=== PATIENT | female | born 1950 | race Caucasian/White ===

== ENCOUNTER 2022-05-08 16:21 | Emergency (ER) | payer MEDICARE ==
[2022-05-08 16:39] VITALS: RESP 18; TEMP 98
[2022-05-08 16:41] VITALS: BP 143/93
[2022-05-08] MEDS ORDERED: SODIUM CHLORIDE 0.9% 1,000 ML IV STA (20:07)
--- NOTE | 2022-05-08 20:38 | ED ---
General Adult HPI - General Chief complaint: Back Pain/Injury Stated complaint: Dizziness Time Seen by Provider: 05/08/22 19:56 Source: patient, RN notes reviewed Mode of arrival: wheelchair - History of Present Illness Initial comments: This is a pleasant 71-year-old female who is on vacation from [facility]. Patient presents to the emergency department today complaining of a headache for the past 30 days as well as neck pain and back pain. Patient states sleeping last night was uncomfortable due to the pain in her left mid to lower back. Patient denying any fever or chills. Denies any shortness breath or chest pain. Patient states she had a virtual with her neurologist was sent here for evaluation. Patient states she recently had shingles in her right foot and currently is on acyclovir. Patient states that this is the third time she since shingles. Apparently every time she precedes the shingles with a headache. Headache currently 7 out of 10 in intensity. Patient denies any focal weakness. No numbness or tingling. Does have some lightheadedness. No vertiginous symptoms. Is complaining of headache, neck pain, back pain which assessment by movement. POSITIVE cough, No headache, no fever or chills, no changes in vision or hearing, no sore throat or difficulty with speech, no neck pain, no chest pain or shortness of breath, no abdominal pain, no nausea or vomiting, no changes in urination or bowel movements, no numbness or tingling, no extremity pain, no skin rashes or lesions. Past medical, surgical, social, and family history reviewed. - Related Data Allergies Allergy/AdvReac Type Severity Reaction Status Date / Time amiodarone Allergy Unknown Verified 05/08/22 21:00 carbidopa Allergy Unknown Verified 05/08/22 21:00 cyclobenzaprine Allergy Unknown Verified 05/08/22 21:00 [From Flexeril] hydromorphone [From Dilaudid] Allergy Unknown Verified 05/08/22 21:00 lisinopril Allergy Unknown Verified 05/08/22 21:00 nifedipine Allergy Unknown Verified 05/08/22 21:00 adhesive tape AdvReac Unknown Verified 05/08/22 21:00 NSAIDS (Non-Steroidal AdvReac Unknown Verified 05/08/22 21:00 Anti-Inflamma Review of Systems ROS Statement: Those systems with pertinent positive or pertinent negative responses have been documented in the HPI. ROS Other: All systems not noted in ROS Statement are negative. Past Medical History Past Medical History: Asthma, Hypertension, Thyroid Disorder Additional Past Medical History / Comment(s): chronic back pain, dysautonomia, Thomas Danlos syndrome History of Any Multi-Drug Resistant Organisms: None Reported Past Surgical History: Back Surgery, Joint Replacement, Orthopedic Surgery Additional Past Surgical History / Comment(s): cervical fusion Past Psychological History: No Psychological Hx Reported Smoking Status: Never smoker Past Alcohol Use History: None Reported Past Drug Use History: None Reported General Exam - General Exam Comments Initial Comments: Patient does not appear to be ill or toxic. Resting comfortably when I enter the room. Patient working on a computer. Cranial nerves II through XII are intact. Alert and oriented 4. Vital signs stable, patient afebrile. Capillary refill less than 2 seconds. No mottling. General appearance: alert, in no apparent distress Head exam: Present: atraumatic, normocephalic, normal inspection Eye exam: Present: normal appearance, PERRL, EOMI. Absent: scleral icterus, conjunctival injection, periorbital swelling ENT exam: Present: normal exam, normal oropharynx, mucous membranes moist, TM's normal bilaterally, normal external ear exam. Absent: mucous membranes dry Neck exam: Present: normal inspection, full ROM, other (Negative Brudzinski's a nd Kernig's). Absent: tenderness, meningismus, lymphadenopathy Respiratory exam: Present: normal lung sounds bilaterally. Absent: respiratory distress, wheezes, rales, rhonchi, stridor, chest wall tenderness, accessory muscle use, decreased breath sounds, prolonged expiratory Cardiovascular Exam: Present: regular rate, normal rhythm, normal heart sounds. Absent: systolic murmur, diastolic murmur, rubs, gallop, clicks GI/Abdominal exam: Present: soft, normal bowel sounds. Absent: distended, tenderness, guarding, rebound, rigid Extremities exam: Present: normal inspection, full ROM, normal capillary refill. Absent: tenderness, pedal edema, joint swelling, calf tenderness Back exam: Present: normal inspection Neurological exam: Present: alert, oriented X3, CN II-XII intact, normal gait, reflexes normal. Absent: motor sensory deficit Psychiatric exam: Present: normal affect, normal mood. Absent: depressed, ag itated, anxious, flat affect, manic Skin exam: Present: warm, dry, intact, normal color, other. Absent: rash, cyanosis, erythema, urticaria, vesicles, petechiae, pallor, mottled, abrasion Course Vital Signs 05/08/22 05/08/22 16:32 16:41 Temperature 98.0 F Pulse Rate 89 Respiratory 18 Rate Blood Pressure 143/93 O2 Sat by Pulse 97 Oximetry - Reevaluation(s) Reevaluation #1: 05/08/22 22:32 Medical record is reviewed Symptoms somewhat improved after initial pain medication. Patient is informed of results and questions answered Patient in no distress Reevaluation #2: 05/09/22 00:16 Medical record is reviewed Symptoms are improved here in the emergency department Patient is informed of results and questions answered Patient in no distress EKG Findings - EKG Comments: EKG Findings:: EKG done at 2234 and interpreted by me reveals sinus rhythm rate is 68, normal axis, normal intervals, no acute ST or T-wave changes. Normal QRS morphology. Review by the ED attending physician. No comparison study. Medical Decision Making - Medical Decision Making Patient symptomology most consistent with musculoskeletal etiology. However, infectious etiology such as viral syndrome is within the differential. I do not believe this consistent with any meningitis as the patient has had symptoms for a month. Current headaches have not 10 intensity. This headache is longer than the patient is used to. Patient does have a history of headaches. Going to obtain a CT of the brain, only due to the length of symptomology. Patient has no focal neurologic deficits. Discussed all findings with the patient. Discussed treatment plan. We did discuss other investigations to include lumbar puncture. After discussion. Patient is refusing this modality. I think this is relatively low risk as the patient has had symptomology for 1 month. Patient's pain is near the left flank. We did decide order a noncontrast CT to rule out kidney stone. Patient was reevaluated and is improved. Patient has reproducible low back pain which is exacerbated by movement and palpation. No evidence of cauda equina syndrome. No problems with bowel movements urination. Patient neurologically intact. Patient does have old compression fractures of T12 and L3 which showed a new about. Patient has tramadol at home. Patient states she uses Cheri at with Tylenol. Patient also has a cough with some nasal congestion. Suspect viral bronchitis, possible adenovirus or rhinovirus. Patient released in stable condition. The case was discussed in detail with ED attending physician. Presentation, findings, treatment plan discussed in detail. Patient was told to return to the ER for any signs or symptoms worsen. Told to return immediately if any other problems arise. All questions answered. Treatment plan discussed. Patient in agreement Every effort has been made to ensure accuracy of this dictation. However, due to the limitations of electronic medical records and dictation devices, errors in charting still occur. Walking Dragline Operator Dr. Vieira - Lab Data Result diagrams: 05/08/22 20:35 05/08/22 21:24 Lab Results 05/08/22 05/08/22 05/08/22 Range/Units 20:35 20:35 20:35 WBC 11.3 H (3.8-10.6) k/uL RBC 4.52 (3.80-5.40) m/uL Hgb 14.4 (11.4-16.0) gm/dL Hct 42.7 (34.0-46.0) % MCV 94.4 (80.0-100.0) fL MCH 31.8 (25.0-35.0) pg MCHC 33.7 (31.0-37.0) g/dL RDW 13.7 (11.5-15.5) % Plt Count 288 (150-450) k/uL MPV 8.7 Neutrophils % 73 % Lymphocytes % 18 % Monocytes % 5 % Eosinophils % 1 % Basophils % 0 % Neutrophils # 8.3 H (1.3-7.7) k/uL Lymphocytes # 2.1 (1.0-4.8) k/uL Monocytes # 0.6 (0-1.0) k/uL Eosinophils # 0.1 (0-0.7) k/uL Basophils # 0.0 (0-0.2) k/uL ESR 17 (0-20) mm/hr Sodium (137-145) mmol/L Potassium (3.5-5.1) mmol/L Chloride (98-107) mmol/L Carbon Dioxide (22-30) mmol/L Anion Gap mmol/L BUN (7-17) mg/dL Creatinine (0.52-1.04) mg/dL Est GFR (CKD-EPI)AfAm (>60 ml/min/1.73 sqM) Est GFR (CKD-EPI)NonAf (>60 ml/min/1.73 sqM) Glucose (74-99) mg/dL Plasma Lactic Acid Jerardo (0.7-2.0) mmol/L Calcium (8.4-10.2) mg/dL Magnesium (1.6-2.3) mg/dL Total Bilirubin (0.2-1.3) mg/dL AST (14-36) U/L ALT (4-34) U/L Alkaline Phosphatase (38-126) U/L Troponin I <0.012 (0.000-0.034) ng/mL Total Protein (6.3-8.2) g/dL Albumin (3.5-5.0) g/dL Urine Color Light Yellow Urine Appearance Clear (Clear) Urine pH 6.0 (5.0-8.0) Ur Specific Graford 1.003 (1.001-1.035) Urine Protein Negative (Negative) Urine Glucose (UA) Negative (Negative) Urine Ketones Negative (Negative) Urine Blood Negative (Negative) Urine Nitrite Negative (Negative) Urine Bilirubin Negative (Negative) Urine Urobilinogen <2.0 (<2.0) mg/dL Ur Leukocyte Esterase Trace H (Negative) Urine RBC <1 (0-5) /hpf Urine WBC 3 (0-5) /hpf Coronavirus (PCR) (Not Detectd) Influenza Type A RNA (Not Detectd) Influenza Type B (PCR) (Not Detectd) 05/08/22 05/08/22 05/08/22 Range/Units 21:07 21:07 21:24 WBC (3.8-10.6) k/uL RBC (3.80-5.40) m/uL Hgb (11.4-16.0) gm/dL Hct (34.0-46.0) % MCV (80.0-100.0) fL MCH (25.0-35.0) pg MCHC (31.0-37.0) g/dL RDW (11.5-15.5) % Plt Count (150-450) k/uL MPV Neutrophils % % Lymphocytes % % Monocytes % % Eosinophils % % Basophils % % Neutrophils # (1.3-7.7) k/uL Lymphocytes # (1.0-4.8) k/uL Monocytes # (0-1.0) k/uL Eosinophils # (0-0.7) k/uL Basophils # (0-0.2) k/uL ESR (0-20) mm/hr Sodium 138 (137-145) mmol/L Potassium 4.5 (3.5-5.1) mmol/L Chloride 105 (98-107) mmol/L Carbon Dioxide 25 (22-30) mmol/L Anion Gap 8 mmol/L BUN 11 (7-17) mg/dL Creatinine 0.61 (0.52-1.04) mg/dL Est GFR (CKD-EPI)AfAm >90 (>60 ml/min/1.73 sqM) Est GFR (CKD-EPI)NonAf >90 (>60 ml/min/1.73 sqM) Glucose 93 (74-99) mg/dL Plasma Lactic Acid Jerardo (0.7-2.0) mmol/L Calcium 9.5 (8.4-10.2) mg/dL Magnesium 2.3 (1.6-2.3) mg/dL Total Bilirubin 0.4 (0.2-1.3) mg/dL AST 23 (14-36) U/L ALT 15 (4-34) U/L Alkaline Phosphatase 127 H (38-126) U/L Troponin I (0.000-0.034) ng/mL Total Protein 7.1 (6.3-8.2) g/dL Albumin 4.4 (3.5-5.0) g/dL Urine Color Urine Appearance (Clear) Urine pH (5.0-8.0) Ur Specific Graford (1.001-1.035) Urine Protein (Negative) Urine Glucose (UA) (Negative) Urine Ketones (Negative) Urine Blood (Negative) Urine Nitrite (Negative) Urine Bilirubin (Negative) Urine Urobilinogen (<2.0) mg/dL Ur Leukocyte Esterase (Negative) Urine RBC (0-5) /hpf Urine WBC (0-5) /hpf Coronavirus (PCR) Not Detected (Not Detectd) Influenza Type A RNA Not Detected (Not Detectd) Influenza Type B (PCR) Not Detected (Not Detectd) 05/08/22 Range/Units 21:24 WBC (3.8-10.6) k/uL RBC (3.80-5.40) m/uL Hgb (11.4-16.0) gm/dL Hct (34.0-46.0) % MCV (80.0-100.0) fL MCH (25.0-35.0) pg MCHC (31.0-37.0) g/dL RDW (11.5-15.5) % Plt Count (150-450) k/uL MPV Neutrophils % % Lymphocytes % % Monocytes % % Eosinophils % % Basophils % % Neutrophils # (1.3-7.7) k/uL Lymphocytes # (1.0-4.8) k/uL Monocytes # (0-1.0) k/uL Eosinophils # (0-0.7) k/uL Basophils # (0-0.2) k/uL ESR (0-20) mm/hr Sodium (137-145) mmol/L Potassium (3.5-5.1) mmol/L Chloride (98-107) mmol/L Carbon Dioxide (22-30) mmol/L Anion Gap mmol/L BUN (7-17) mg/dL Creatinine (0.52-1.04) mg/dL Est GFR (CKD-EPI)AfAm (>60 ml/min/1.73 sqM) Est GFR (CKD-EPI)NonAf (>60 ml/min/1.73 sqM) Glucose (74-99) mg/dL Plasma Lactic Acid Jerardo 1.4 (0.7-2.0) mmol/L Calcium (8.4-10.2) mg/dL Magnesium (1.6-2.3) mg/dL Total Bilirubin (0.2-1.3) mg/dL AST (14-36) U/L ALT (4-34) U/L Alkaline Phosphatase (38-126) U/L Troponin I (0.000-0.034) ng/mL Total Protein (6.3-8.2) g/dL Albumin (3.5-5.0) g/dL Urine Color Urine Appearance (Clear) Urine pH (5.0-8.0) Ur Specific Graford (1.001-1.035) Urine Protein (Negative) Urine Glucose (UA) (Negative) Urine Ketones (Negative) Urine Blood (Negative) Urine Nitrite (Negative) Urine Bilirubin (Negative) Urine Urobilinogen (<2.0) mg/dL Ur Leukocyte Esterase (Negative) Urine RBC (0-5) /hpf Urine WBC (0-5) /hpf Coronavirus (PCR) (Not Detectd) Influenza Type A RNA (Not Detectd) Influenza Type B (PCR) (Not Detectd) - Radiology Data Radiology results: image reviewed Computed tomography scan of the brain interpreted by me reveals no acute pathology. Chest x-ray interpreted by me reveals no acute pathology. Reviewed radiology report. Patient's computed tomography scan shows evidence of old compression fractures of T12 and L3. No evidence of renal stone or other acute pathology. Disposition Clinical Impression: Back pain, Headache, Cervicalgia, Acute viral bronchitis, DJD (degenerative joint disease), lumbar Narrative: Old T12 and L3 compression fractures Disposition: HOME SELF-CARE Condition: Good Instructions (If sedation given, give patient instructions): Acute Bronchitis (ED), Chronic Back Pain (DC) Additional Instructions: Follow-up with your regular physician as directed. Return to the ER immediately if any symptoms worsen, new symptoms arise, or any other problems develop. Is patient prescribed a controlled substance at d/c from ED?: No Referrals: Nonstaff,Physician [Primary Care Provider] - 1-2 days Time of Disposition: 00:17
[2022-05-08 20:59] LABS: Basophils % (A) 0 %; Eosinophils # (A) 0.1 k/uL (0-0.7); Eosinophils % (A) 1 %; HCT 42.7 % (34.0-46.0); HGB 14.4 gm/dL (11.4-16.0); Lymphocytes # (A) 2.1 k/uL (1.0-4.8); Lymphocytes % (A) 18 %; MCH 31.8 pg (25.0-35.0); MCHC 33.7 g/dL (31.0-37.0); MCV 94.4 fL (80.0-100.0); Mean Platelet Volume 8.7; Monocytes # (A) 0.6 k/uL (0-1.0); Monocytes % (A) 5 %; Neutrophils # (A) 8.3 k/uL (1.3-7.7); Neutrophils % (A) 73 %; Platelet Count 288 k/uL (150-450); RBC 4.52 m/uL (3.80-5.40); RDW 13.7 % (11.5-15.5); WBC 11.3 k/uL (3.8-10.6)
[2022-05-08 21:02] LABS: Appearance,Urine Clear (Clear); Bilirubin,Urine Negative (Negative); Blood,Urine Negative (Negative); Color,Urine Light Yellow; Glucose,Urine (UA) Negative (Negative); Ketones,Urine Negative (Negative); Leukocyte Esterase,Urine Trace (Negative); Nitrite,Urine Negative (Negative); Protein,Urine Negative (Negative); RBC,Urine <1 /hpf (0-5); Specific Gravity,Urine 1.003 (1.001-1.035); Urobilinogen,Urine <2.0 mg/dL (<2.0); WBC,Urine 3 /hpf (0-5)
[2022-05-08 21:55] LABS: ALT 15 U/L (4-34); AST 23 U/L (14-36); African American GFR (CKD) >90 (>60 ml/min/1.73 sqM); Albumin 4.4 g/dL (3.5-5.0); Alkaline Phosphatase 127 U/L (38-126); Anion Gap 8 mmol/L; Blood Urea Nitrogen 11 mg/dL (7-17); Calcium 9.5 mg/dL (8.4-10.2); Carbon Dioxide 25 mmol/L (22-30); Chloride 105 mmol/L (98-107); Glucose 93 mg/dL (74-99); Magnesium 2.3 mg/dL (1.6-2.3); Non-African American GFR(CKD) >90 (>60 ml/min/1.73 sqM); Potassium 4.5 mmol/L (3.5-5.1); Sodium 138 mmol/L (137-145); Total Bilirubin 0.4 mg/dL (0.2-1.3); Total Protein 7.1 g/dL (6.3-8.2)
--- NOTE | 2022-05-08 22:00 | CT ---
EXAMINATION TYPE: CT brain wo con DATE OF EXAM: 05/08/2022 COMPARISON: HISTORY: ROWE CT DLP: 1201.9 mGycm Automated exposure control for dose reduction was used. There is cerebral atrophy. There is no mass effect or midline shift. No sign of intracranial hemorrha ge. The calvarium is intact. There is normal aeration of the mastoid sinuses. IMPRESSION: Cerebral atrophy. No acute intracranial abnormality.
[2022-05-08] MEDS ORDERED: KETOROLAC 15 MG/ML 1 ML VIAL IVP STA (22:31)
--- NOTE | 2022-05-08 23:25 | CT ---
EXAMINATION TYPE: CT abdomen pelvis wo con DATE OF EXAM: 05/08/2022 COMPARISON: None HISTORY: left flank pain CT DLP: 822.2 mGycm Automated exposure control for dose reduction was used. Images obtained from the diaphragm to the floor the pelvis with no contrast. The lung bases are clear. No pleural effusion. Heart size is normal. No pericardial effusion. There i s hiatal hernia. Liver spleen pancreas gallbladder appear intact. The bile ducts are not dilated. There is no adrenal mass. Kidneys have normal size and contour. No evidence of a renal mass. There is some fullness of the right renal pelvis. No renal calculus seen. The ureters are not dilated. I do n ot see definite evidence for a ureteral calculus. The bladder distends smoothly. No inguinal hernia. No pelvic mass. No free fluid in the pelvis. There are isolated sigmoid diverticula. No diverticuliti s. Appendix is posterior and appears normal. The lumbar vertebra show normal alignment. There is anterior wedging of T12 vertebra 75% related to a pparent old compression fracture. There is a 15% depression of the central portion of the superior en dplate of L3. This appears old. The bony pelvis is intact. The hip joints are intact. Sacroiliac join ts are intact. There is no mesenteric edema. No ascites or free air. No sign of a bowel obstruction. IMPRESSION: Normal appendix. Old compression fractures at T12 and L3. No evidence of renal stone or obstruction.
[2022-05-09 00:02] LABS: Erythrocyte Sedimentation Rate 17 mm/hr (0-20)
[2022-05-09 00:35] VITALS: PULSE 82
--- NOTE | 2022-05-09 01:36 | XR ---
EXAMINATION TYPE: XR chest 1V portable DATE OF EXAM: 05/08/2022 COMPARISON: NONE HISTORY: Dizziness TECHNIQUE: Single view FINDINGS: There is no heart failure nor confluent pneumonic infiltrate. Thoracic aorta is atheromatou s. Costophrenic angles are clear. There are no hilar masses. There is upper thoracic levoscoliosis. IMPRESSION: No active cardiopulmonary disease. Atheromatous aorta.
== END 2022-05-09 00:35 | disposition home or self-care (01) ==
LOC: EC 16:21
DX: R51.9 Headache, unspecified (principal); M54.2 Cervicalgia; J20.8 Acute bronchitis due to other specified organisms; M19.90 Unspecified osteoarthritis, unspecified site; K44.9 Diaphragmatic hernia without obstruction or gangrene; K57.30 Diverticulosis of large intestine without perforation or abscess without bleeding; M48.54XA Collapsed vertebra, not elsewhere classified, thoracic region, initial encounter for fracture; J45.909 Unspecified asthma, uncomplicated; I10 Essential (primary) hypertension; Z88.8 Allergy status to other drugs, medicaments and biological substances; Z88.5 Allergy status to narcotic agent; Z91.09 Other allergy status, other than to drugs and biological substances; Z88.6 Allergy status to analgesic agent; Z20.822 Contact with and (suspected) exposure to COVID-19
CPT/HCPCS: 36415; 70450; 71045; 74176; 80053; 81001; 83605; 83735; 84484; 85025; 85652; 87502; 87635; 93005; 96360; 99284